=== PATIENT | female | born 1995 | race African-American/Black ===

== ENCOUNTER 2016-07-19 20:33 | Emergency (ER) | payer SELFPAY ==
[2016-07-19 22:00] LABS: BASO % 0.4 % (0.0-1.0); EOS # 0.2 K/mm3 (0.0-0.50); EOS % 2.3 % (0.0-3.0); LARGE UNSTAINED CELL # 0.2 K/mm3 (0.0-0.4); LARGE UNSTAINED CELL % 2.3 % (0.0-4.0); LYMPH # 2.8 K/mm3 (1.5-6.5); LYMPH % 32.2 % (24.0-44.0); MEAN CORPUSCULAR HEMOGLOBIN 25.3 pg (27.0-33.0); MEAN CORPUSCULAR HGB CONC 30.6 g/dl (32.0-36.5); MEAN CORPUSCULAR VOLUME 82.5 fl (80.0-96.0); MONO # 0.3 K/mm3 (0.0-0.8); MONO % 3.4 % (0.0-5.0); NEUTROPHILS # 5.1 K/mm3 (1.8-7.7); NEUTROPHILS % 59.4 % (36.0-66.0); PLATELET COUNT, AUTOMATED 560 k/mm3 (150-450); RED CELL DISTRIBUTION WIDTH 14.8 % (11.5-14.5); WHITE BLOOD COUNT 8.6 K/mm3 (4.0-10.0)
[2016-07-19 22:14] LABS: ANION GAP 9 MEQ/L (8-16); BLOOD UREA NITROGEN 3 MG/DL (7-18); CALCIUM LEVEL 8.7 MG/DL (8.5-10.1); CARBON DIOXIDE LEVEL 25 MEQ/L (21-32); CHLORIDE LEVEL 106 MEQ/L (98-107); GLOMERULAR FILTRATION RATE > 60.0 (>60); GLUCOSE, FASTING 105 MG/DL (70-105); POTASSIUM SERUM 3.8 MEQ/L (3.5-5.1); SODIUM LEVEL 140 MEQ/L (136-145)
[2016-07-19 22:50] LABS: HCG, SERUM QUANTITATIVE 2189 MIU/ML
--- NOTE | 2016-07-19 23:50 | REPUSA ---
CLINICAL HISTORY: determination. TECHNIQUE: Transabdominal and endovaginal ultrasound of the pelvis was performed. FINDINGS: Anteverted uterus measures 9.7 x 5.2 x 6.5 cm without masses. Endometrium demonstrates a single gestational sac with mean sac diameter 4.3 mm correlating to 5 week s, 1 day gestation. No yolk sac or pole identified. Right ovary measures 2.2 x 2.4 x 1.9 cm, left ovary measures 2.0 x 2.3 x 1.8 cm; both within normal l imits. No free fluid. IMPRESSION: No evidence of a live intrauterine is identified at this time. Findings likely represent an early IUP however close clinical follow-up with serial beta-hCG and short interim pelvic ultrasound is recommended to ensure a viable developing gestation.
--- NOTE | 2016-07-20 01:57 | EDDOCDS ---
Nurse's Notes [facility] Name: Helene Mccarty Age: 21 yrs Sex: Female : 1995 Arrival Date: 07/19/2016 Time: 20:33 Bed I4 / M4 Private MD: Other - Complete Info On Cds Diagnosis: Threatened ;Acute vaginitis-BACTERIAL Presentation: 07/19 20:38 Presenting complaint: Patient states: she has been cramping for 1.5 weeks, today began nn1 having vaginal bleeding. LMP 06/07/16. Patient reports she is currently . Adult Sepsis Screening: The patient does not have new or worsening altered mentation. Patient's respiratory rate is less than 22. Systolic blood pressure is greater than 100. Patient has a qSOFA score of 0- Negative Sepsis Screen. Suicide/Homicide risk assessment- the patient denies having any suicidal and/or homicidal ideations and does not present with any other emotional, behavioral or mental health complaints. Status: Patient is not a customer services manager or dependent. Transition of care: patient was not received from another setting of care. 20:38 Acuity: NICKIE Level 3 nn1 20:38 Method Of Arrival: Walkin/Carried/Asstd nn1 07/20 01:55 Risk factors: The patient reports no loss of conciousness prior to arrival. This b patient has not had a hysterectomy. This patient has not begun menopause. Triage Assessment: 07/19 20:39 General: Appears in no apparent distress, comfortable, Behavior is appropriate for age, nn1 cooperative. Pain: Location: abdomen Pain currently is 4 out of 10 on a pain scale. Quality of pain is described as crampy, Pain began 1 week ago. HIV screening NA for this visit Offered previously. The patient is triaged at the bedside. See Assessment in Nurses Notes section of ED record. Respiratory: No deficits noted. GI: Reports cramping. : Reports Vaginal bleeding "the color of pink lemonade". Derm: Skin is normal. 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 Historical: - Allergies: No known drug Allergies; - Home Meds: 1. none - PMHx: none; - PSHx: none; - Social history: Smoking status: Patient states was never smoker of tobacco. No barriers to communication noted, The patient speaks fluent Kazakh, Speaks appropriately for age. - Family history: Not pertinent. - : The pt / caregiver states he / she is not on anticoagulants. Home medication list is obtained from the patient. - Exposure Risk Screening:: None identified. Screenin/08 22:03 Screening information is obtained from the patient. Fall risk: No risks identified. jmb Assistance ADL's: requires no assistance with activities of daily living. Abuse/DV Screen: The patient / caregiver reports he/she is: not in a situation that causes fear, pain or injury. Nutritional screening: No deficits noted. home support is adequate. 07/20 01:54 Advance Directives: Currently, there is no health care proxy. There is no active DNR jmb order. There is no living will. There is no Power of Hemming And Tacking Machine Operator. Assessment: 07/19 22:03 General: Appears in no apparent distress, Behavior is appropriate for age, cooperative. jmb Pain: Location: abdomen Pain currently is 3 out of 10 on a pain scale. Neurological: Level of Consciousness is awake, alert, obeys commands, Oriented to person, place, time, Clean Energy Policy Analyst are equal bilaterally Speech is normal, Facial symmetry appears normal, Facial symmetry: tongue is midline. Cardiovascular: Capillary refill < 3 seconds Heart tones S1 S2 present Pulses are all present. Rhythm is regular. Respiratory: Airway is patent Respiratory effort is even, unlabored, Respiratory pattern is regular, symmetrical, Breath sounds are clear bilaterally. GI: Abdomen is obese, Bowel sounds present X 4 quads. Abd is soft X 4 quads. : Reports vaginal bleeding that is moderate flow. Derm: Skin is normal. Musculoskeletal: Range of motion intact in all extremities. 23:05 General: Appears in no apparent distress, comfortable, Behavior is appropriate for age, jmb cooperative. Neurological: Level of Consciousness is awake, alert, obeys commands, Oriented to person, place, time. Respiratory: Airway is patent Respiratory effort is even, unlabored, Respiratory pattern is regular, symmetrical. 07/20 00:30 General: Appears in no apparent distress, comfortable, Behavior is appropriate for age, jmb cooperative, Patient laying on stretcher with friends at bedside. Patient voices no complaints at this time. . Neurological: Level of Consciousness is awake, alert, obeys commands, Oriented to person, place, time. Respiratory: Airway is patent Respiratory effort is even, unlabored, Respiratory pattern is regular, symmetrical, 01:51 General: Patient instructed on discharge instructions. Patient asked if there were any b questions regarding discharge, patient stated no. IV discontinued per hospital policy. Patient signed discharge instructions. Patient discharged in stable condition. . Vital Signs: 07/19 20:35 BP 151 / 87; Pulse 133; Resp 18 S; Temp 99.5(O); Pulse Ox 99% on R/A; Weight 113.4 kg gr2 (R); Height 5 ft. 3 in. (160.02 cm) (R); Pain 3/10; 07/20 00:23 BP 124 / 54; Pulse 107; Resp 18; Temp 97.4; Pulse Ox 98% ; Pain 0/10; ajs 07/19 20:35 Body Mass Index 44.29 (113.40 kg, 160.02 cm) gr2 Vitals: 07/19 20:35 Log In Time: July 19, 2016 at 20:35. gr2 ED Course: 20:34 Patient visited by Mars Kellogg. gr2 20:34 Other - Complete Info On Cds is Private Physician. gr2 20:34 Patient moved to Waiting gr2 20:36 Patient visited by Mars Kellogg. gr2 20:36 Patient moved to Pre RCE gr2 20:39 Triage Initiated nn1 21:08 Patient moved to Triage 1 ajs 21:13 Jarocho Miller RPA-C is PHCP. ck7 21:13 Ifeanyi Trammell MD is Attending Physician. ck7 21:13 Patient visited by Jarocho Miller RPA-C. ck7 21:25 Ida Olvera, RN is Primary Nurse. ttb 21:25 Helene Church,YAKOV is Primary Nurse. ttb 21:25 Patient moved to I4 / M4 ttb 21:28 [facility] Payment Agreement was scanned into [employer] and attached to record. gjb 21:29 Primary Nurse role handed off by Ida Olvera, RN pc 21:38 Type & Screen Sent. jmb 22:03 The patient / caregiver is instructed regarding the plan of care and ED course. jmb 22:03 Inserted saline lock: 20 gauge in right hand and blood collected. The patient tolerated jmb the procedure well. Labs drawn. (by ED staff). Sent per order to lab. 22:09 Patient visited by Jay Montejo RN. jermaine 22:15 UA Sent. jmb 22:20 Patient moved to Ultrasound br3 22:42 Patient moved to I4 / M4 br3 22:43 Patient visited by Jarocho Miller RPA-C. ck7 23:15 Patient visited by Jarocho Miller RPA-C. ck7 23:53 Patient visited by Jarocho Miller RPA-C. ck7 07/20 00:13 US 1st trimester Returned. EDMS 00:23 Patient visited by Betzy Sumner. ajs 00:28 Primary Nurse role handed off by Helene Church RN jmb 00:55 Patient visited by Jarocho Miller RPA-C. ck 01:26 Patient visited by Jarocho Miller RPA-C. ck7 01:42 Dave Carrion MD is Referral Physician. ck 01:54 Discontinued lock intact, bleeding controlled, pressure dressing applied, No jmb redness/swelling at site. No procedures done that require assistance. Administered Medications: 07/19 21:44 Drug: NS 0.9% 1000 ml [sodium chloride 0.9 % intravenous solution] Route: IV; Rate: jmb bolus; Site: right antecubital; Order Results: Lab Order: Type & Screen; [facility] 07/20/16 00:22 Test: BLOOD TYPE; Value: O POS; Status: F Test: AB SCREEN (INDIRECT ARIANA)VIS; Value: NEGATIVE; Status: F Lab Order: Wet Prep; [facility] 07/19/16 23:54 Test: WET PREP; Value: WET PREP RESULT; Status: F Test: WET PREP; Value: MANY EPITHELIAL CELLS PRESENT; Status: F Test: WET PREP; Value: MODERATE CLUE CELLS PRESENT; Status: F Test: WET PREP; Value: FEW WBC; Status: F Test: WET PREP; Value: MODERATE LONG RODS PRESENT; Status: F Lab Order: CBC WITH DIFFERENTIAL; [facility] 07/19/16 21:36 Test: WHITE BLOOD COUNT; Value: 8.6; Range: 4.0-10.0; Units: K/mm3; Status: F Test: RED BLOOD COUNT; Value: 4.48; Range: 4.00-5.40; Units: M/mm3; Status: F Test: HEMOGLOBIN; Value: 11.3; Range: 12.0-16.0; Abnormal: Below low normal; Units: g/dl; Status: F Test: HEMATOCRIT; Value: 36.9; Range: 36.0-47.0; Units: %; Status: F Test: MEAN CORPUSCULAR VOLUME; Value: 82.5; Range: 80.0-96.0; Units: fl; Status: F Test: MEAN CORPUSCULAR HEMOGLOBIN; Value: 25.3; Range: 27.0-33.0; Abnormal: Below low normal; Units: pg; Status: F Test: MEAN CORPUSCULAR HGB CONC; Value: 30.6; Range: 32.0-36.5; Abnormal: Below low normal; Units: g/dl; Status: F Test: RED CELL DISTRIBUTION WIDTH; Value: 14.8; Range: 11.5-14.5; Abnormal: Above high normal; Units: %; Status: F Test: PLATELET COUNT, AUTOMATED; Value: 560; Range: 150-450; Abnormal: Above high normal; Units: k/mm3; Status: F Test: NEUTROPHILS %; Value: 59.4; Range: 36.0-66.0; Units: %; Status: F Test: LYMPH %; Value: 32.2; Range: 24.0-44.0; Units: %; Status: F Test: MONO %; Value: 3.4; Range: 0.0-5.0; Units: %; Status: F Test: EOS %; Value: 2.3; Range: 0.0-3.0; Units: %; Status: F Test: BASO %; Value: 0.4; Range: 0.0-1.0; Units: %; Status: F Test: LARGE UNSTAINED CELL %; Value: 2.3; Range: 0.0-4.0; Units: %; Status: F Test: NEUTROPHILS #; Value: 5.1; Range: 1.8-7.7; Units: K/mm3; Status: F Test: LYMPH #; Value: 2.8; Range: 1.5-6.5; Units: K/mm3; Status: F Test: MONO #; Value: 0.3; Range: 0.0-0.8; Units: K/mm3; Status: F Test: EOS #; Value: 0.2; Range: 0.0-0.50; Units: K/mm3; Status: F Test: BASO #; Value: 0.0; Range: 0.0-0.2; Units: K/mm3; Status: F Test: LARGE UNSTAINED CELL #; Value: 0.2; Range: 0.0-0.4; Units: K/mm3; Status: F Lab Order: BASIC METABOLIC PROFILE; SPEC'M 07/19/16 21:36 Test: GLUCOSE, FASTING; Value: 105; Range: 70-105; Units: MG/DL; Status: F Test: BLOOD UREA NITROGEN; Value: 3; Range: 7-18; Abnormal: Below low normal; Units: MG/DL; Status: F Test: CREATININE FOR GFR; Value: 0.80; Range: 0.55-1.02; Units: MG/DL; Status: F Test: GLOMERULAR FILTRATION RATE; Value: > 60.0; Range: >60; Status: F Test: SODIUM LEVEL; Value: 140; Range: 136-145; Units: MEQ/L; Status: F Test: POTASSIUM SERUM; Value: 3.8; Range: 3.5-5.1; Units: MEQ/L; Status: F Test: CHLORIDE LEVEL; Value: 106; Range: 98-107; Units: MEQ/L; Status: F Test: CARBON DIOXIDE LEVEL; Value: 25; Range: 21-32; Units: MEQ/L; Status: F Test: ANION GAP; Value: 9; Range: 8-16; Units: MEQ/L; Status: F Test: CALCIUM LEVEL; Value: 8.7; Range: 8.5-10.1; Units: MG/DL; Status: F Test Note: ; Units are mL/min/1.73 m2 Chronic Kidney Disease Staging per NKF: Stage I & II GFR >=60 Normal to Mildly Decreased Stage III GFR 30-59 Moderately Decreased Stage IV GFR 15-29 Severely Decreased Stage V GFR <15 Very Little GFR Left ESRD GFR <15 on RETURNS PROCESSOR Lab Order: UA; SPEC'M 07/19/16 22:12 Test: APPEARANCE, URINE; Value: CLEAR; Range: CLEAR; Status: F Test: COLOR, URINE; Value: YELLOW; Range: YELLOW; Status: F Test: PH,URINE; Value: 6.0; Range: 5.0-9.0; Units: UNITS; Status: F Test: SPECIFIC GRAVITY URINE AUTO; Value: 1.024; Range: 1.002-1.035; Status: F Test: PROTEIN, URINE AUTO; Value: NEGATIVE; Range: NEGATIVE; Units: mg/dL; Status: F Test: GLUCOSE, URINE (UA) AUTO; Value: NEGATIVE; Range: NEGATIVE; Units: mg/dL; Status: F Test: KETONE, URINE AUTO; Value: TRACE; Range: NEGATIVE; Abnormal: Above high normal; Units: mg/dL; Status: F Test: UROBILINOGEN, URINE AUTO; Value: 0.2; Range: 0.0-2.0; Units: mg/dL; Status: F Test: BILIRUBIN, URINE AUTO; Value: NEGATIVE; Range: NEGATIVE; Status: F Test: NITRITE, URINE AUTO; Value: NEGATIVE; Range: NEGATIVE; Status: F Test: LEUKOCYTE ESTERASE, URINE AUTO; Value: TRACE; Range: NEGATIVE; Abnormal: Above high normal; Status: F Test: BLOOD, URINE BLOOD; Value: NEGATIVE; Range: NEGATIVE; Status: F Test: WBC, URINE AUTO; Value: 3; Range: 0-3; Units: /HPF; Status: F Test: RBC, URINE AUTO; Value: 2; Range: 0-3; Units: /HPF; Status: F Test: BACTERIA, URINE AUTO; Value: NEGATIVE; Range: NEGATIVE; Status: F Test: SQUAMOUS EPITHELIAL CELL UR AU; Value: 0; Range: 0-6; Units: /HPF; Status: F Test: MUCUS, URINE; Value: SMALL; Range: NEGATIVE; Status: F Test: HYALINE CAST, URINE AUTO; Value: 0; Range: 0-1; Units: /LPF; Status: F Lab Order: HCG, SERUM QUANTITATIVE; SPEC'M 07/19/16 21:36 Test: HCG, SERUM QUANTITATIVE; Value: 2189; Units: MIU/ML; Status: F Test Note: ; GESTATIONAL AGE APPROXIMATE HCG RANGE (MIU/ML) 0.2-1 WEEK 5-50 1-2 WEEKS 50-500 2-3 WEEKS 100-5,000 3-4 WEEKS 500-10,000 4-5 WEEKS 1,000-50,000 5-6 WEEKS 10,000-100,000 6-8 WEEKS 15,000-200,000 2-3 MONTHS 10,000-100,000 NON FEMALES LESS THAN 3.0 Patient samples may contain human heterophilic antibodies that could react with immunoassays to give falsely elevated or depressed results. This assay has been designed to minimize interference from heterophilic antibodies. Elevated hCG levels have also been associated with trophoblastic disease and nontrophoblastic neoplasms. The possibility of having these diseases should be considered before a diagnosis of is made. This test is not intended for use as a surrogate marker for aiding in the diagnosis or monitoring the treatment of cancer patients. Siemens Songdrop methodology. Radiology Order: US 1st trimester Test: US 1st trimester REASON FOR EXAMINATION: Bleeding; ; CLINICAL HISTORY: determination.; TECHNIQUE: Transabdominal and endovaginal ultrasound of the pelvis was performed.; FINDINGS:; Anteverted uterus measures 9.7 x 5.2 x 6.5 cm without masses.; Endometrium demonstrates a single gestational sac with mean sac diameter 4.3 mm correlating to 5 week; s, 1 day gestation. No yolk sac or pole identified.; Right ovary measures 2.2 x 2.4 x 1.9 cm, left ovary measures 2.0 x 2.3 x 1.8 cm; both within normal l; imits.; No free fluid.; IMPRESSION:; No evidence of a live intrauterine is identified at this time. Findings likely represent an; early IUP however close clinical follow-up with serial beta-hCG and short interim pelvic ultrasound; is recommended to ensure a viable developing gestation.; ; Outcome: 07/20 01:42 Discharge ordered by Provider. ck7 01:54 Discharge Assessment: Patient awake, alert and oriented x 3. No cognitive and/or jmb functional deficits noted. Patient verbalized understanding of disposition instructions. Patient awake and alert. obeys commands, Oriented to person, place and time. Patient verbalized understanding of disposition instructions. Patient has no functional deficits. patient administered narcotics - no. The following High Risk Discharge criteria are identified: None. Discharged to home ambulatory, with friend. Condition: stable Condition: improved. Discharge instructions given to patient, Instructed on discharge instructions, follow up and referral plans. medication usage, Demonstrated understanding of instructions, medications, Pt was receptive of discharge instructions/ teaching. Prescriptions given X 1. Ultrasound Study completed. Property sent home with patient. 01:57 Patient left the ED. jermaine Signatures: Dispatcher [employer] EDKS Ifeanyi Trammell MD MD pc Raymond, Brianne br3 Betzy Sumner Christopher, SUSHILA-C RPA-Cck7 Leigh Luciano, RN RN ttb Mars Kellogg gr2 Jay MontejoRN RN Arie VitaleRN RN nn1 Babita Luke Corrections: (The following items were deleted from the chart) 07/19 22:23 22:15 HCG, SERUM QUANTITATIVE+LAB sent. jermaine [facility] 22:23 22:15 BASIC METABOLIC PROFILE+LAB sent. [facility] MTDD
--- NOTE | 2016-07-20 01:57 | EDDOCDS ---
Physician Documentation [facility] Name: Helene Mccarty Age: 21 yrs Sex: Female : 1995 Arrival Date: 07/19/2016 Time: 20:33 Bed I4 / M4 Private MD: Other - Complete Info On Cds Disposition: 07/20/16 01:42 Discharged to Home/Self Care. Impression: Threatened , Acute vaginitis - BACTERIAL. - Condition is Stable. - Discharge Instructions: Bacterial Vaginosis, Threatened Miscarriage, Pelvic Rest. - Prescriptions for Metronidazole 0.75 % Vaginal Gel - insert 37.5 milligram by VAGINAL route once daily As needed in the morning and evening; 1 tube. - Medication Reconciliation, Local Pharmacy Hours form. - Follow up: Private Physician; When: 2 - 3 days; Reason: Recheck today's complaints, Continuance of care. Follow up: Dave Prather MD; When: 2 - 3 days; Reason: Recheck today's complaints, Continuance of care. - Problem is new. - Symptoms have improved. - Notes: USE MEDICATION INSTRUCTED, FOLLOW UP WITH DR PRATHER OR A FIRE AND SAFETY HELPER OF YOUR CHOOSING THIS WEEK FOR FOLLOW UP AND REPEAT BLOOD WORK, RETURN TO THE ER IF THE SYMPTOMS WORSEN OR BECOME CONCERNING Historical: - Allergies: No known drug Allergies; - Home Meds: 1. none - PMHx: none; - PSHx: none; - Social history: Smoking status: Patient states was never smoker of tobacco. No barriers to communication noted, The patient speaks fluent Yoruba, Speaks appropriately for age. - Family history: Not pertinent. - : The pt / caregiver states he / she is not on anticoagulants. Home medication list is obtained from the patient. - Exposure Risk Screening:: None identified. 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 3 in. (160.02 cm) (R); Pain 3/10; 07/20 00:23 BP 124 / 54; Pulse 107; Resp 18; Temp 97.4; Pulse Ox 98% ; Pain 0/10; ajs 07/19 20:35 Body Mass Index 44.29 (113.40 kg, 160.02 cm) gr2 MDM: 07/19 21:14 Financial registration complete. gjb 21:23 Set up pelvic ordered. ck7 21:23 NS 0.9% 1000 ml IV at bolus once ordered. ck7 21:23 IV Saline Lock ordered. ck7 21:24 Type & Screen Ordered. EDMS 21:25 Urine Culture Ordered. EDMS 21:25 Wet Prep Ordered. EDMS 21:28 [facility] Payment Agreement was scanned into [email or web address] and attached to record. gjb 21:53 CBC WITH DIFFERENTIAL Ordered. EDMS 21:53 Chlamydia & GC Amplification Ordered. EDMS 22:00 BASIC METABOLIC PROFILE Ordered. EDMS 22:10 UA Ordered. EDMS 22:10 US 1st trimester Ordered. EDMS 22:43 CBC WITH DIFFERENTIAL Reviewed. ck7 22:43 BASIC METABOLIC PROFILE Reviewed. ck7 22:43 UA Reviewed. ck7 22:44 TRANSVAGINAL US Ordered. EDMS 07/20 00:11 BASIC METABOLIC PROFILE Reviewed. ck7 00:11 HCG, SERUM QUANTITATIVE Reviewed. ck7 00:12 Recheck Vital Signs, perform reassessment and enter into [employer] ordered. ck7 00:41 Wet Prep Reviewed. ck7 00:41 US 1st trimester Reviewed. ck7 01:39 Type & Screen Reviewed. ck7 Administered Medications: 07/19 21:44 Drug: NS 0.9% 1000 ml [sodium chloride 0.9 % intravenous solution] Route: IV; Rate: jmb bolus; Site: right antecubital; Signatures: Dispatcher [employer] EDNH Jarocho Miller, SUSHILA-C RPA-Cck7 Jay Montejo,RN RN Arie Vitale,RN RN Babita Muir The chart was reviewed and I authenticate all verbal orders and agree with the evaluation and treatment provided.Corrections: (The following items were deleted from the chart) :43 21:41 HCG, SERUM QUANTITATIVE+LAB ordered. EDNH EDMS :43 21:41 BASIC METABOLIC PROFILE+LAB ordered. EDMS EDMS :43 21:41 CBC WITH DIFFERENTIAL+LAB ordered. EDMS EDMS 43 21:41 URINALYSIS+LAB ordered. EDMS EDMS :43 21:41 Chlamydia & GC Amplification+LAB ordered. EDMS EDMS 22:10 BASIC METABOLIC PROFILE+LAB ordered. EDMS EDMS 22:10 HCG, SERUM QUANTITATIVE+LAB ordered. EDMS EDMS Attachments: :28 [facility] Payment Agreement [email or web address] MTDD
--- NOTE | 2016-07-22 02:58 | EDDOCDS ---
Physician Documentation [facility] Name: Helene Mccarty Age: 21 yrs Sex: Female : 1995 Arrival Date: 07/19/2016 Time: 20:33 Bed I4 / M4 Private MD: Other - Complete Info On Cds Disposition: 07/20/16 01:42 Discharged to Home/Self Care. Impression: Threatened , Acute vaginitis - BACTERIAL. - Condition is Stable. - Discharge Instructions: Bacterial Vaginosis, Threatened Miscarriage, Pelvic Rest. - Prescriptions for Metronidazole 0.75 % Vaginal Gel - insert 37.5 milligram by VAGINAL route once daily As needed in the morning and evening; 1 tube. - Medication Reconciliation, Local Pharmacy Hours form. - Follow up: Private Physician; When: 2 - 3 days; Reason: Recheck today's complaints, Continuance of care. Follow up: Dave Prather MD; When: 2 - 3 days; Reason: Recheck today's complaints, Continuance of care. - Problem is new. - Symptoms have improved. - Notes: USE MEDICATION INSTRUCTED, FOLLOW UP WITH DR PRATHER OR A OXYGEN EQUIPMENT TECHNICIAN OF YOUR CHOOSING THIS WEEK FOR FOLLOW UP AND REPEAT BLOOD WORK, RETURN TO THE ER IF THE SYMPTOMS WORSEN OR BECOME CONCERNING Historical: - Allergies: No known drug Allergies; - Home Meds: 1. none - PMHx: none; - PSHx: none; - Social history: Smoking status: Patient states was never smoker of tobacco. No barriers to communication noted, The patient speaks fluent Hebrew, Speaks appropriately for age. - Family history: Not pertinent. - : The pt / caregiver states he / she is not on anticoagulants. Home medication list is obtained from the patient. - Exposure Risk Screening:: None identified. 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 3 in. (160.02 cm) (R); Pain 3/10; 07/20 00:23 BP 124 / 54; Pulse 107; Resp 18; Temp 97.4; Pulse Ox 98% ; Pain 0/10; ajs 07/19 20:35 Body Mass Index 44.29 (113.40 kg, 160.02 cm) gr2 MDM: 07/19 21:14 Financial registration complete. gjb 21:23 Set up pelvic ordered. ck7 21:23 NS 0.9% 1000 ml IV at bolus once ordered. ck7 21:23 IV Saline Lock ordered. ck7 21:24 Type & Screen Ordered. EDMS 21:25 Urine Culture Ordered. EDMS 21:25 Wet Prep Ordered. EDMS 21:28 [facility] Payment Agreement was scanned into [employer] and attached to record. gjb 21:53 CBC WITH DIFFERENTIAL Ordered. EDMS 21:53 Chlamydia & GC Amplification Ordered. EDMS 22:00 BASIC METABOLIC PROFILE Ordered. EDMS 22:10 UA Ordered. EDMS 22:10 US 1st trimester Ordered. EDMS 22:43 CBC WITH DIFFERENTIAL Reviewed. ck7 22:43 BASIC METABOLIC PROFILE Reviewed. ck7 22:43 UA Reviewed. ck7 22:44 TRANSVAGINAL US Ordered. EDMS 07/20 00:11 BASIC METABOLIC PROFILE Reviewed. ck7 00:11 HCG, SERUM QUANTITATIVE Reviewed. ck7 00:12 Recheck Vital Signs, perform reassessment and enter into [employer] ordered. ck7 00:41 Wet Prep Reviewed. ck7 00:41 US 1st trimester Reviewed. ck7 01:39 Type & Screen Reviewed. ck7 11:14 T-Sheet-- Draft Copy was scanned into [employer] and attached to record. gb Administered Medications: 07/19 21:44 Drug: NS 0.9% 1000 ml [sodium chloride 0.9 % intravenous solution] Route: IV; Rate: jmb bolus; Site: right antecubital; Signatures: Dispatcher [employer] EDMS Michelle Mcgraw, Reg Reg gb Jarocho Miller, RPA-C RPA-Cck7 Jay MontejoRN RN Arie VitaleRN RN Babita Muir The chart was reviewed and I authenticate all verbal orders and agree with the evaluation and treatment provided.Corrections: (The following items were deleted from the chart) 43 21:41 HCG, SERUM QUANTITATIVE+LAB ordered. EDMS EDMS :43 21:41 BASIC METABOLIC PROFILE+LAB ordered. EDMS EDMS 21:43 21:41 CBC WITH DIFFERENTIAL+LAB ordered. EDMS EDMS 21:41 URINALYSIS+LAB ordered. EDMS EDMS 21:41 Chlamydia & GC Amplification+LAB ordered. EDMS EDMS : 22:10 BASIC METABOLIC PROFILE+LAB ordered. EDMS EDMS 22:10 HCG, SERUM QUANTITATIVE+LAB ordered. EDMS EDMS Attachments: 21:28 [facility] Payment Agreement gjb 07/20 11:14 T-Sheet-- Draft Copy gb Chart Complete MTDD
--- NOTE | 2016-07-22 02:58 | EDDOCDS ---
Physician Documentation [facility] Name: Helene Mccarty Age: 21 yrs Sex: Female : 1995 Arrival Date: 07/19/2016 Time: 20:33 Bed I4 / M4 Private MD: Other - Complete Info On Cds Disposition: 07/20/16 01:42 Discharged to Home/Self Care. Impression: Threatened , Acute vaginitis - BACTERIAL. - Condition is Stable. - Discharge Instructions: Bacterial Vaginosis, Threatened Miscarriage, Pelvic Rest. - Prescriptions for Metronidazole 0.75 % Vaginal Gel - insert 37.5 milligram by VAGINAL route once daily As needed in the morning and evening; 1 tube. - Medication Reconciliation, Local Pharmacy Hours form. - Follow up: Private Physician; When: 2 - 3 days; Reason: Recheck today's complaints, Continuance of care. Follow up: Dave Prather MD; When: 2 - 3 days; Reason: Recheck today's complaints, Continuance of care. - Problem is new. - Symptoms have improved. 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 none - PMHx: none; - PSHx: none; - Social history: Smoking status: Patient states was never smoker of tobacco. No barriers to communication noted, The patient speaks fluent Korean, Speaks appropriately for age. - Family history: Not pertinent. - : The pt / caregiver states he / she is not on anticoagulants. Home medication list is obtained from the patient. - Exposure Risk Screening:: None identified. 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 3 in. (160.02 cm) (R); Pain 3/10; 07/20 00:23 BP 124 / 54; Pulse 107; Resp 18; Temp 97.4; Pulse Ox 98% ; Pain 0/10; ajs 07/19 20:35 Body Mass Index 44.29 (113.40 kg, 160.02 cm) gr2 MDM: 07/19 21:14 Financial registration complete. gjb 21:23 Set up pelvic ordered. ck7 21:23 NS 0.9% 1000 ml IV at bolus once ordered. ck7 21:23 IV Saline Lock ordered. ck7 21:24 Type & Screen Ordered. EDMS 21:25 Urine Culture Ordered. EDMS 21:25 Wet Prep Ordered. EDMS 21:28 [facility] Payment Agreement was scanned into [employer] and attached to record. gjb 21:53 CBC WITH DIFFERENTIAL Ordered. EDMS 21:53 Chlamydia & GC Amplification Ordered. EDMS 22:00 BASIC METABOLIC PROFILE Ordered. EDMS 22:10 UA Ordered. EDMS 22:10 US 1st trimester Ordered. EDMS 22:43 CBC WITH DIFFERENTIAL Reviewed. ck7 22:43 BASIC METABOLIC PROFILE Reviewed. ck7 22:43 UA Reviewed. ck7 22:44 TRANSVAGINAL US Ordered. EDMS 07/20 00:11 BASIC METABOLIC PROFILE Reviewed. ck7 00:11 HCG, SERUM QUANTITATIVE Reviewed. ck7 00:12 Recheck Vital Signs, perform reassessment and enter into Med[employer] ordered. ck7 00:41 Wet Prep Reviewed. ck7 00:41 US 1st trimester Reviewed. ck7 01:39 Type & Screen Reviewed. ck7 11:14 T-Sheet-- Draft Copy was scanned into [employer] and attached to record. gb Administered Medications: 07/19 21:44 Drug: NS 0.9% 1000 ml [sodium chloride 0.9 % intravenous solution] Route: IV; Rate: jmb bolus; Site: right antecubital; Signatures: Dispatcher [employer] EDMS Michelle Mcgraw, Reg Reg gb Jarocho Miller, RPA-C RPA-Cck7 Jay MontejoRN RN Arei VitaleRN RN Babita Muir The chart was reviewed and I authenticate all verbal orders and agree with the evaluation and treatment provided.Corrections: (The following items were deleted from the chart) 43 21:41 HCG, SERUM QUANTITATIVE+LAB ordered. EDMS EDMS :43 21:41 BASIC METABOLIC PROFILE+LAB ordered. EDMS EDMS 21:43 21:41 CBC WITH DIFFERENTIAL+LAB ordered. EDMS EDMS 21:41 URINALYSIS+LAB ordered. EDMS EDMS 21:41 Chlamydia & GC Amplification+LAB ordered. EDMS EDMS : 22:10 BASIC METABOLIC PROFILE+LAB ordered. EDMS EDMS 22:10 HCG, SERUM QUANTITATIVE+LAB ordered. EDMS EDMS Attachments: 21:28 [facility] Payment Agreement gjb 07/20 11:14 T-Sheet-- Draft Copy gb Chart Complete MTDD
--- NOTE | 2016-07-22 02:58 | EDDOCDS ---
Nurse's Notes [facility] Name: Helene Mccarty Age: 21 yrs Sex: Female : 1995 Arrival Date: 07/19/2016 Time: 20:33 Bed I4 / M4 Private MD: Other - Complete Info On Cds Diagnosis: Threatened ;Acute vaginitis-BACTERIAL Presentation: 07/19 20:38 Presenting complaint: Patient states: she has been cramping for 1.5 weeks, today began nn1 having vaginal bleeding. LMP 06/07/16. Patient reports she is currently . Adult Sepsis Screening: The patient does not have new or worsening altered mentation. Patient's respiratory rate is less than 22. Systolic blood pressure is greater than 100. Patient has a qSOFA score of 0- Negative Sepsis Screen. Suicide/Homicide risk assessment- the patient denies having any suicidal and/or homicidal ideations and does not present with any other emotional, behavioral or mental health complaints. Status: Patient is not a district manager postal service or dependent. Transition of care: patient was not received from another setting of care. 20:38 Acuity: NICKIE Level 3 nn1 20:38 Method Of Arrival: Walkin/Carried/Asstd nn1 07/20 01:55 Risk factors: The patient reports no loss of conciousness prior to arrival. This b patient has not had a hysterectomy. This patient has not begun menopause. Triage Assessment: 07/19 20:39 General: Appears in no apparent distress, comfortable, Behavior is appropriate for age, nn1 cooperative. Pain: Location: abdomen Pain currently is 4 out of 10 on a pain scale. Quality of pain is described as crampy, Pain began 1 week ago. HIV screening NA for this visit Offered previously. The patient is triaged at the bedside. See Assessment in Nurses Notes section of ED record. Respiratory: No deficits noted. GI: Reports cramping. : Reports Vaginal bleeding "the color of pink lemonade". Derm: Skin is normal. 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 none - PMHx: none; - PSHx: none; - Social history: Smoking status: Patient states was never smoker of tobacco. No barriers to communication noted, The patient speaks fluent Frisian, Speaks appropriately for age. - Family history: Not pertinent. - : The pt / caregiver states he / she is not on anticoagulants. Home medication list is obtained from the patient. - Exposure Risk Screening:: None identified. Screenin/08 22:03 Screening information is obtained from the patient. Fall risk: No risks identified. jmb Assistance ADL's: requires no assistance with activities of daily living. Abuse/DV Screen: The patient / caregiver reports he/she is: not in a situation that causes fear, pain or injury. Nutritional screening: No deficits noted. home support is adequate. 07/20 01:54 Advance Directives: Currently, there is no health care proxy. There is no active DNR jmb order. There is no living will. There is no Power of Relish Blender. Assessment: 07/19 22:03 General: Appears in no apparent distress, Behavior is appropriate for age, cooperative. jmb Pain: Location: abdomen Pain currently is 3 out of 10 on a pain scale. Neurological: Level of Consciousness is awake, alert, obeys commands, Oriented to person, place, time, Bender Helper are equal bilaterally Speech is normal, Facial symmetry appears normal, Facial symmetry: tongue is midline. Cardiovascular: Capillary refill < 3 seconds Heart tones S1 S2 present Pulses are all present. Rhythm is regular. Respiratory: Airway is patent Respiratory effort is even, unlabored, Respiratory pattern is regular, symmetrical, Breath sounds are clear bilaterally. GI: Abdomen is obese, Bowel sounds present X 4 quads. Abd is soft X 4 quads. : Reports vaginal bleeding that is moderate flow. Derm: Skin is normal. Musculoskeletal: Range of motion intact in all extremities. 23:05 General: Appears in no apparent distress, comfortable, Behavior is appropriate for age, jmb cooperative. Neurological: Level of Consciousness is awake, alert, obeys commands, Oriented to person, place, time. Respiratory: Airway is patent Respiratory effort is even, unlabored, Respiratory pattern is regular, symmetrical. 07/20 00:30 General: Appears in no apparent distress, comfortable, Behavior is appropriate for age, jmb cooperative, Patient laying on stretcher with friends at bedside. Patient voices no complaints at this time. . Neurological: Level of Consciousness is awake, alert, obeys commands, Oriented to person, place, time. Respiratory: Airway is patent Respiratory effort is even, unlabored, Respiratory pattern is regular, symmetrical, 01:51 General: Patient instructed on discharge instructions. Patient asked if there were any b questions regarding discharge, patient stated no. IV discontinued per hospital policy. Patient signed discharge instructions. Patient discharged in stable condition. . Vital Signs: 07/19 20:35 BP 151 / 87; Pulse 133; Resp 18 S; Temp 99.5(O); Pulse Ox 99% on R/A; Weight 113.4 kg gr2 (R); Height 5 ft. 3 in. (160.02 cm) (R); Pain 3/10; 07/20 00:23 BP 124 / 54; Pulse 107; Resp 18; Temp 97.4; Pulse Ox 98% ; Pain 0/10; ajs 07/19 20:35 Body Mass Index 44.29 (113.40 kg, 160.02 cm) gr2 Vitals: 07/19 20:35 Log In Time: July 19, 2016 at 20:35. gr2 ED Course: 20:34 Patient visited by Mars Kellogg. gr2 20:34 Other - Complete Info On Cds is Private Physician. gr2 20:34 Patient moved to Waiting gr2 20:36 Patient visited by Mars Kellogg. gr2 20:36 Patient moved to Pre RCE gr2 20:39 Triage Initiated nn1 21:08 Patient moved to Triage 1 ajs 21:13 Jarocho Miller RPA-C is PHCP. ck7 21:13 Ifeanyi Trammell MD is Attending Physician. ck7 21:13 Patient visited by Jarocho Miller RPA-C. ck7 21:25 Ida Olvera, RN is Primary Nurse. ttb 21:25 Helene Church,YAKOV is Primary Nurse. ttb 21:25 Patient moved to I4 / M4 ttb 21:28 [facility] Payment Agreement was scanned into [employer] and attached to record. gjb 21:29 Primary Nurse role handed off by Ida Olvera, RN pc 21:38 Type & Screen Sent. jmb 22:03 The patient / caregiver is instructed regarding the plan of care and ED course. jmb 22:03 Inserted saline lock: 20 gauge in right hand and blood collected. The patient tolerated jmb the procedure well. Labs drawn. (by ED staff). Sent per order to lab. 22:09 Patient visited by Jay Montejo RN. jermaine 22:15 UA Sent. jmb 22:20 Patient moved to Ultrasound br3 22:42 Patient moved to I4 / M4 br3 22:43 Patient visited by Jarocho Miller RPA-C. ck7 23:15 Patient visited by Jarocho Miller RPA-C. ck7 23:53 Patient visited by Jarocho Miller RPA-C. ck7 07/20 00:13 US 1st trimester Returned. EDMS 00:23 Patient visited by Betzy Sumner. ajs 00:28 Primary Nurse role handed off by Helene Church RN jmb 00:55 Patient visited by Jarocho Miller RPA-C. ck 01:26 Patient visited by Jarocho Miller RPA-C. ck7 01:42 Dave Carrion MD is Referral Physician. ck 01:54 Discontinued lock intact, bleeding controlled, pressure dressing applied, No jmb redness/swelling at site. No procedures done that require assistance. 11:14 T-Sheet-- Draft Copy was scanned into [employer] and attached to record. gb Administered Medications: 07/19 21:44 Drug: NS 0.9% 1000 ml [sodium chloride 0.9 % intravenous solution] Route: IV; Rate: jmb bolus; Site: right antecubital; Order Results: Lab Order: Type & Screen; SPEC'M 07/20/16 00:22 Test: BLOOD TYPE; Value: O POS; Status: F Test: AB SCREEN (INDIRECT ARIANA)VIS; Value: NEGATIVE; Status: F Lab Order: Urine Culture; SPEC'M 07/19/16 22:12 Test: URINE CULTURE; Value: <EXTERNAL COMMENT eCWMed> FULL REPORT IN LAB NOTES (eCW and Medent).; Status: F Test: URINE CULTURE; Value: URINE CULTURE RESULT; Status: F Test: URINE CULTURE; Value: NO GROWTH CLINICAL SIGNIFICANCE 2 OR MORE ORGANISMS; Status: F Lab Order: Wet Prep; SPEC'M 07/19/16 23:54 Test: WET PREP; Value: WET PREP RESULT; Status: F Test: WET PREP; Value: MANY EPITHELIAL CELLS PRESENT; Status: F Test: WET PREP; Value: MODERATE CLUE CELLS PRESENT; Status: F Test: WET PREP; Value: FEW WBC; Status: F Test: WET PREP; Value: MODERATE LONG RODS PRESENT; Status: F Lab Order: CBC WITH DIFFERENTIAL; SPEC'M 07/19/16 21:36 Test: WHITE BLOOD COUNT; Value: 8.6; Range: 4.0-10.0; Units: K/mm3; Status: F Test: RED BLOOD COUNT; Value: 4.48; Range: 4.00-5.40; Units: M/mm3; Status: F Test: HEMOGLOBIN; Value: 11.3; Range: 12.0-16.0; Abnormal: Below low normal; Units: g/dl; Status: F Test: HEMATOCRIT; Value: 36.9; Range: 36.0-47.0; Units: %; Status: F Test: MEAN CORPUSCULAR VOLUME; Value: 82.5; Range: 80.0-96.0; Units: fl; Status: F Test: MEAN CORPUSCULAR HEMOGLOBIN; Value: 25.3; Range: 27.0-33.0; Abnormal: Below low normal; Units: pg; Status: F Test: MEAN CORPUSCULAR HGB CONC; Value: 30.6; Range: 32.0-36.5; Abnormal: Below low normal; Units: g/dl; Status: F Test: RED CELL DISTRIBUTION WIDTH; Value: 14.8; Range: 11.5-14.5; Abnormal: Above high normal; Units: %; Status: F Test: PLATELET COUNT, AUTOMATED; Value: 560; Range: 150-450; Abnormal: Above high normal; Units: k/mm3; Status: F Test: NEUTROPHILS %; Value: 59.4; Range: 36.0-66.0; Units: %; Status: F Test: LYMPH %; Value: 32.2; Range: 24.0-44.0; Units: %; Status: F Test: MONO %; Value: 3.4; Range: 0.0-5.0; Units: %; Status: F Test: EOS %; Value: 2.3; Range: 0.0-3.0; Units: %; Status: F Test: BASO %; Value: 0.4; Range: 0.0-1.0; Units: %; Status: F Test: LARGE UNSTAINED CELL %; Value: 2.3; Range: 0.0-4.0; Units: %; Status: F Test: NEUTROPHILS #; Value: 5.1; Range: 1.8-7.7; Units: K/mm3; Status: F Test: LYMPH #; Value: 2.8; Range: 1.5-6.5; Units: K/mm3; Status: F Test: MONO #; Value: 0.3; Range: 0.0-0.8; Units: K/mm3; Status: F Test: EOS #; Value: 0.2; Range: 0.0-0.50; Units: K/mm3; Status: F Test: BASO #; Value: 0.0; Range: 0.0-0.2; Units: K/mm3; Status: F Test: LARGE UNSTAINED CELL #; Value: 0.2; Range: 0.0-0.4; Units: K/mm3; Status: F Lab Order: Chlamydia & GC Amplification; SPEC'M 07/19/16 23:54 Test: CHLAMYDIA DNA AMPLIFICATION; Value: POSITIVE; Range: NEGATIVE; Abnormal: Above high normal; Status: F Test: GC DNA AMPLIFICATION; Value: NEGATIVE; Range: NEGATIVE; Status: F Lab Order: BASIC METABOLIC PROFILE; SPEC'M 07/19/16 21:36 Test: GLUCOSE, FASTING; Value: 105; Range: 70-105; Units: MG/DL; Status: F Test: BLOOD UREA NITROGEN; Value: 3; Range: 7-18; Abnormal: Below low normal; Units: MG/DL; Status: F Test: CREATININE FOR GFR; Value: 0.80; Range: 0.55-1.02; Units: MG/DL; Status: F Test: GLOMERULAR FILTRATION RATE; Value: > 60.0; Range: >60; Status: F Test: SODIUM LEVEL; Value: 140; Range: 136-145; Units: MEQ/L; Status: F Test: POTASSIUM SERUM; Value: 3.8; Range: 3.5-5.1; Units: MEQ/L; Status: F Test: CHLORIDE LEVEL; Value: 106; Range: 98-107; Units: MEQ/L; Status: F Test: CARBON DIOXIDE LEVEL; Value: 25; Range: 21-32; Units: MEQ/L; Status: F Test: ANION GAP; Value: 9; Range: 8-16; Units: MEQ/L; Status: F Test: CALCIUM LEVEL; Value: 8.7; Range: 8.5-10.1; Units: MG/DL; Status: F Test Note: ; Units are mL/min/1.73 m2 Chronic Kidney Disease Staging per NKF: Stage I & II GFR >=60 Normal to Mildly Decreased Stage III GFR 30-59 Moderately Decreased Stage IV GFR 15-29 Severely Decreased Stage V GFR <15 Very Little GFR Left ESRD GFR <15 on CARAMEL MAKER Lab Order: UA; SPEC'M 07/19/16 22:12 Test: APPEARANCE, URINE; Value: CLEAR; Range: CLEAR; Status: F Test: COLOR, URINE; Value: YELLOW; Range: YELLOW; Status: F Test: PH,URINE; Value: 6.0; Range: 5.0-9.0; Units: UNITS; Status: F Test: SPECIFIC GRAVITY URINE AUTO; Value: 1.024; Range: 1.002-1.035; Status: F Test: PROTEIN, URINE AUTO; Value: NEGATIVE; Range: NEGATIVE; Units: mg/dL; Status: F Test: GLUCOSE, URINE (UA) AUTO; Value: NEGATIVE; Range: NEGATIVE; Units: mg/dL; Status: F Test: KETONE, URINE AUTO; Value: TRACE; Range: NEGATIVE; Abnormal: Above high normal; Units: mg/dL; Status: F Test: UROBILINOGEN, URINE AUTO; Value: 0.2; Range: 0.0-2.0; Units: mg/dL; Status: F Test: BILIRUBIN, URINE AUTO; Value: NEGATIVE; Range: NEGATIVE; Status: F Test: NITRITE, URINE AUTO; Value: NEGATIVE; Range: NEGATIVE; Status: F Test: LEUKOCYTE ESTERASE, URINE AUTO; Value: TRACE; Range: NEGATIVE; Abnormal: Above high normal; Status: F Test: BLOOD, URINE BLOOD; Value: NEGATIVE; Range: NEGATIVE; Status: F Test: WBC, URINE AUTO; Value: 3; Range: 0-3; Units: /HPF; Status: F Test: RBC, URINE AUTO; Value: 2; Range: 0-3; Units: /HPF; Status: F Test: BACTERIA, URINE AUTO; Value: NEGATIVE; Range: NEGATIVE; Status: F Test: SQUAMOUS EPITHELIAL CELL UR AU; Value: 0; Range: 0-6; Units: /HPF; Status: F Test: MUCUS, URINE; Value: SMALL; Range: NEGATIVE; Status: F Test: HYALINE CAST, URINE AUTO; Value: 0; Range: 0-1; Units: /LPF; Status: F Lab Order: HCG, SERUM QUANTITATIVE; SPEC'M 07/19/16 21:36 Test: HCG, SERUM QUANTITATIVE; Value: 2189; Units: MIU/ML; Status: F Test Note: ; GESTATIONAL AGE APPROXIMATE HCG RANGE (MIU/ML) 0.2-1 WEEK 5-50 1-2 WEEKS 50-500 2-3 WEEKS 100-5,000 3-4 WEEKS 500-10,000 4-5 WEEKS 1,000-50,000 5-6 WEEKS 10,000-100,000 6-8 WEEKS 15,000-200,000 2-3 MONTHS 10,000-100,000 NON FEMALES LESS THAN 3.0 Patient samples may contain human heterophilic antibodies that could react with immunoassays to give falsely elevated or depressed results. This assay has been designed to minimize interference from heterophilic antibodies. Elevated hCG levels have also been associated with trophoblastic disease and nontrophoblastic neoplasms. The possibility of having these diseases should be considered before a diagnosis of is made. This test is not intended for use as a surrogate marker for aiding in the diagnosis or monitoring the treatment of cancer patients. [employer] [place] methodology. Radiology Order: US 1st trimester Test: US 1st trimester REASON FOR EXAMINATION: Bleeding; ; CLINICAL HISTORY: determination.; TECHNIQUE: Transabdominal and endovaginal ultrasound of the pelvis was performed.; FINDINGS:; Anteverted uterus measures 9.7 x 5.2 x 6.5 cm without masses.; Endometrium demonstrates a single gestational sac with mean sac diameter 4.3 mm correlating to 5 week; s, 1 day gestation. No yolk sac or pole identified.; Right ovary measures 2.2 x 2.4 x 1.9 cm, left ovary measures 2.0 x 2.3 x 1.8 cm; both within normal l; imits.; No free fluid.; IMPRESSION:; No evidence of a live intrauterine is identified at this time. Findings likely represent an; early IUP however close clinical follow-up with serial beta-hCG and short interim pelvic ultrasound; is recommended to ensure a viable developing gestation.; ; Outcome: 07/20 01:42 Discharge ordered by Provider. ck7 01:54 Discharge Assessment: Patient awake, alert and oriented x 3. No cognitive and/or jmb functional deficits noted. Patient verbalized understanding of disposition instructions. Patient awake and alert. obeys commands, Oriented to person, place and time. Patient verbalized understanding of disposition instructions. Patient has no functional deficits. patient administered narcotics - no. The following High Risk Discharge criteria are identified: None. Discharged to home ambulatory, with friend. Condition: stable Condition: improved. Discharge instructions given to patient, Instructed on discharge instructions, follow up and referral plans. medication usage, Demonstrated understanding of instructions, medications, Pt was receptive of discharge instructions/ teaching. Prescriptions given X 1. Ultrasound Study completed. Property sent home with patient. 01:57 Patient left the ED. [facility] Signatures: Dispatcher [employer] EDIfeanyi Alfaro MD MD pc Michelle Mcgraw, Reg Reg gb Sue Kellogg br3 Betzy Sumner Christopher, SUSHILA-C RPA-Cck7 Leigh Luciano, RN RN ttb Mars Kellogg gr2 Jay MontejoRN RN Arie VitaleRN RN [id number] Babita Luke Corrections: (The following items were deleted from the chart) 07/19 22:23 22:15 HCG, SERUM QUANTITATIVE+LAB sent. [facility] EDLA 22:23 22:15 BASIC METABOLIC PROFILE+LAB sent. [facility] EDLA Chart Complete MTDD
== END 2016-07-20 01:57 | disposition home or self-care (01) ==
LOC: EDSEX 20:33 → M ED 20:33
DX: O20.0 Threatened abortion (principal); O23.591 Infection of other part of genital tract in pregnancy, first trimester; Z3A.01 Less than 8 weeks gestation of pregnancy

== ENCOUNTER → 2016-07-21 | Outpatient (CLI) | payer SELFPAY | LOC: M SMT 14:49 | PROVIDERS: ATTEND Specialist | DX: N93.8 Other specified abnormal uterine and vaginal bleeding (principal) ==

== ENCOUNTER → 2016-08-25 | Outpatient (CLI) | payer OTHER ==
[2016-08-25 15:07] LABS: BASO % 0.3 % (0.0-1.0); EOS # 0.1 K/mm3 (0.0-0.50); EOS % 1.5 % (0.0-3.0); LARGE UNSTAINED CELL # 0.1 K/mm3 (0.0-0.4); LARGE UNSTAINED CELL % 1.5 % (0.0-4.0); LYMPH % 29.1 % (24.0-44.0); MEAN CORPUSCULAR HEMOGLOBIN 26.5 pg (27.0-33.0); MEAN CORPUSCULAR HGB CONC 31.9 g/dl (32.0-36.5); MEAN CORPUSCULAR VOLUME 83.1 fl (80.0-96.0); MONO # 0.3 K/mm3 (0.0-0.8); MONO % 4.4 % (0.0-5.0); NEUTROPHILS # 4.1 K/mm3 (1.8-7.7); NEUTROPHILS % 63.2 % (36.0-66.0); PLATELET COUNT, AUTOMATED 386 k/mm3 (150-450); RED CELL DISTRIBUTION WIDTH 14.9 % (11.5-14.5); WHITE BLOOD COUNT 6.4 K/mm3 (4.0-10.0)
[2016-08-25 15:46] LABS: HBsAg Prenatal NEGATIVE (NEGATIVE)
[2016-08-25 16:01] LABS: CONTROL LINE INT CTR LINE PRESENT; HIV SCRN NEGATIVE (NEGATIVE); HIV SCRN1 NEGATIVE (NEGATIVE)
== END ==
LOC: M LAB 13:32
PROVIDERS: ATTEND Specialist
DX: Z34.81 Encounter for supervision of other normal pregnancy, first trimester (principal)

== ENCOUNTER 2016-09-13 21:16 | Emergency (ER) | payer OTHER ==
[~2016-09-13] VITALS: Ht 160 cm; Wt 127.0 kg
[2016-09-13] MEDS ORDERED: PRENTAB16 PO (21:22)
--- NOTE | 2016-09-13 23:00 | REPUSA ---
CLINICAL HISTORY: Pelvic pain. TECHNIQUE: Realtime sonographic images were obtained in multiple projections via TA approach. The exa mination was performed by the booth cashier and still images were submitted for interpretation. Comparison: Pelvic ultrasound 07/19/2016. COMMENTS: Single intrauterine gestation in oblique positioning with head toward maternal left position. motion identified and heart rate 147 BPM. Cervical length 3.5 cm. Anterior position placenta without evidence of low-lying placenta or abruption. Subjective amniotic fluid is within normal limits. Gestational age sonographically is 14 weeks, 0 days with expected date of delivery 03/14/2017. 1.1 x 0.7 cm nabothian cyst. Soft tissue echogenicity in the lower uterine segment noted which may represent fibroid or uterine co ntraction. IMPRESSION: Single live intrauterine gestation correlating to 14 weeks, 0 days with expected date of delivery 03/14/2017. Thank you for your kind referral of this patient.
[2016-09-13 23:18] VITALS: BP 153/76
== END 2016-09-13 23:19 | disposition home or self-care (01) ==
LOC: M ED 21:30
DX: O99.89 Other specified diseases and conditions complicating pregnancy, childbirth and the puerperium (principal); R10.2 Pelvic and perineal pain; Z3A.14 14 weeks gestation of pregnancy

== ENCOUNTER → 2016-11-03 | Outpatient (CLI) | payer OTHER ==
[~2016-11-03] MED LIST: PRENTAB16 PO
--- NOTE | 2016-11-03 16:27 | REP ---
Clinical: Anatomical evaluation. Comparison: 09/13/2016 . Findings: Examination demonstrates a single live intrauterine in breech presentation. motion is identified by technologist. Placenta is noted anteriorly and grade zero without evidence for placenta previa or abruption. Amniotic fluid volume is normal. Cervix measures 5.0 cm in length and appears closed. No evidence for nuchal cord. Gestational age by LMP 21 weeks 2 days with PATTIE 03/14/2017 . Gestational age by current measurements 20 weeks 1 day with PATTIE 03/22/2017 . FHR equals 147 beats per minute. BPD 4.4 cm 19 weeks 3 days HC 18.2 cm 20 weeks 1 day AC 14.8 cm 20 weeks 0 days FL 3.2 cm 19 weeks 6 days HL 3.1 cm 20 weeks 2 days HC/AC ratio 1.24 Estimated weight 328 grams ( 8th percentile). Anatomical assessment demonstrates normal structures including cranium, choroid plexus, cavum, lungs, diaphragm, stomach, cord insertion, kidneys/bladder, and upper extremities. Limited evaluation of the posterior fossa, facial features, heart/ventricular outflow tracts, three-vessel cord, spine and lower extremities. Impression: Single live intrauterine in breech presentation demonstrating less than expected interval growth. Anatomical limitations as described above. Follow-up and reevaluation is recommended. Signed by Marcelino Levine MD 11/03/2016 04:18 P
== END ==
LOC: M SMT 15:06
PROVIDERS: ATTEND Specialist
DX: Z34.82 Encounter for supervision of other normal pregnancy, second trimester (principal)